=== PATIENT | female | born 1990 | race Caucasian/White ===

== ENCOUNTER 2018-08-29 21:17 | Outpatient (CLI) | END 2018-08-29 23:55 | disposition home or self-care (01) ==

== ENCOUNTER 2018-11-20 03:35 | Inpatient (IN) | payer MEDICAID ==
[~2018-11-20] VITALS: Ht 165.1 cm; Wt 64.1 kg
[2018-11-20 03:54] VITALS: Ht 165.1 cm; Wt 64.1 kg
[2018-11-20 03:55] VITALS: BP 125/79; PULSE 109; RESP 20
[2018-11-20] MEDS ORDERED: LACTATED RINGER'S 1,000 ML IV SCH (03:58)
[2018-11-20] MEDS ORDERED: PREN-93 PO (03:58)
[2018-11-20] MEDS ORDERED: LACTATED RINGER'S 1,000 ML IV PRN (03:58)
[2018-11-20] MEDS ORDERED: CALC600T24 PO (03:58)
[2018-11-20] MEDS ORDERED: OXYTOCIN 30 UNITS/LR 500 ML IV PRN ×2 (04:00→07:00)
[2018-11-20] MEDS ORDERED: MISOPROSTOL 200 MCG TAB PR PRN ×2 (04:00→07:00)
[2018-11-20] MEDS ORDERED: IBUPROFEN 600 MG TAB PO PRN (04:00)
[2018-11-20] MEDS ORDERED: METHYLERGONOVINE 0.2 MG INJ IM PRN ×2 (04:00→07:00)
[2018-11-20] MEDS ORDERED: BUTORPHANOL 2 MG INJ IV PRN (04:00)
[2018-11-20] MEDS ORDERED: CARBOPROST 250 MCG INJ IM PRN ×2 (04:00→07:00)
[2018-11-20] MEDS ORDERED: OXYTOCIN 30 UNITS/LR 500 ML IV SCH ×3 (04:00→05:00)
[2018-11-20] MEDS ORDERED: LIDOCAINE 1% (MPF) 30 ML INJ INJ PRN (04:00)
[2018-11-20] MEDS ORDERED: AMPICILLIN 2 GM/NS (PMX) 100 ML IV ONE (04:00)
--- NOTE | 2018-11-20 05:45 | PREAC ---
Date/Time of Note Date/Time of Note DATE: 11/20/18 TIME: 05:44 Anesthesia Eval and Record Evaluation Time Pre-Procedure Interview DATE: 11/20/18 TIME: 05:44 Age 28 Sex female NPO: 8 hrs Preoperative diagnosis IUP Planned procedure L&D Past Medical History Past Medical History: None Surgery & Anesthesia Issues No known issue Meds Anticoagulation: No Beta Arabella within 24 hr: No Reason Beta Arabella not given: Pt. not on B-Arabella Reported Medications Calcium Carbonate* (Calcium Carbonate*) 600 MG Ca Tab, 600 MG PO DAILY, TAB 11/20/18 Vit No.124/Iron/FA ( Vitamin Tablet) 1 Each Tablet, 1 EACH PO DAILY, TAB 11/20/18 Current Medications Lactated Ringer's 1,000 ml @ 125 mls/hr Q8H IV Last administered on 11/20/18at 04:25; Admin Dose 125 MLS/HR; Start 11/20/18 at 03:58 Ampicillin 50 ml @ 100 mls/hr Q4H IV ; Start 11/20/18 at 08:00 Butorphanol Tartrate (Stadol) 2 mg Q2H PRN IV PAIN; Start 11/20/18 at 04:00 Lidocaine (Xylocaine 1% (Mpf)) 30 ml ONCE PRN INJ EPISIOTOMY; Start 11/20/18 at 04:00 Oxytocin/Lactated Ringer's 500 ml @ 500 mls/hr ONCE POST IV ; Start 11/20/18 at 04:00 Oxytocin/Lactated Ringer's 500 ml @ 125 mls/hr POST IV ; Start 11/20/18 at 04:00 Ibuprofen (Motrin) 600 mg ONCE PRN PO PAIN LEVEL 1-5; Start 11/20/18 at 04:00 Lactated Ringer's 1,000 ml @ 2,000 mls/hr Q30M PRN IV ANESTHESIA; Start 11/20/18 at 03:58 Oxytocin/Lactated Ringer's 500 ml @ 0 mls/hr ONCE PRN IV VAGINAL BLEEDING; Start 11/20/18 at 04:00 Methylergonovine Maleate (Methergine) 0.2 mg ONCE PRN IM VAGINAL BLEEDING; Start 11/20/18 at 04:00 Carboprost Tromethamine (Hemabate) 250 mcg ONCE PRN IM VAGINAL BLEEDING; Start 11/20/18 at 04:00 Misoprostol (Cytotec) 1,000 mcg ONCE PRN AR VAGINAL BLEEDING; Start 11/20/18 at 04:00 Oxytocin/Lactated Ringer's 500 ml @ 0 mls/hr FOR AUGMENTATION IV ; Start 11/20/18 at 05:00 Meds reviewed: Yes Allergies Coded Allergies: No Known Allergy (Unverified , 11/20/18) Allergies Reviewed: Yes Labs/Studies Labs Reviewed: Reviewed by anesthesiologist Result Diagram: 11/20/18 0430 Laboratory Tests 11/20/18 04:30 test: Positive Studies: ECG Pre-procedure Exam Last vitals Vital Signs Date Temp Pulse Resp B/P (MAP) Pulse Ox O2 O2 Flow FiO2 Time Delivery Rate 11/20/18 97.5 109 20 125/79 Room Air 03:55 (94) Airway: Adequate mouth opening, Adequate thyromental dist Mallampati: Mallampati II Teeth: Normal Lung: Normal Heart: Normal ASA Physical Status ASA physical status: 2 Emergency: None Planned Anesthetic Neuraxial: Epidural Planned Pain Management Epidural, Parenteral pain med Pre-operative Attestations Prior to commencing anesthesia and surgery, the patient was re-evaluated, there was verification of: *The patient's identity *The results of appropriate recent lab work and preoperative vital signs *The above evaluation not changing prior to induction *Anesthetic plan, risk benefits, alternative and complications discussed with patient/family; questions answered; patient/family understands, accepts and wishes to proceed. CATRACHO CALDERON MD Nov 20, 2018 05:45
[2018-11-20] MEDS ORDERED: FENTAnyl 2MCG/ML-ROPIV 0.2% 0 ML ONE (05:47)
[2018-11-20] MEDS ORDERED: ONDANSETRON 4 MG INJ IV PRN ×2 (06:00→07:00)
[2018-11-20] MEDS ORDERED: DIPHENHYDRAMINE 50 MG INJ IV PRN ×2 (06:00→07:00)
[2018-11-20] MEDS ORDERED: NALOXONE (0.4 MG/ML) INJ IV PRN (06:00)
[2018-11-20] MEDS ORDERED: FENTAnyl 2MCG/ML-ROPIV 0.2% 100 ML BAG EPI SCH (06:00)
--- NOTE | 2018-11-20 06:49 | HP ---
Date/Time of Note Date/Time of Note DATE: 11/20/18 TIME: 06:46 OB - History Hx of Present Free Text/Dictation 28-year-old with single intrauterine at 38 weeks and 3 days with a ADELINE of 12/01/2018 complaining of leakage of fluid and uterine contractions. She states good movement. She denies nausea, vomiting, shortness of breath, chest pain, headache, visual changes, vaginal bleeding or LOF. Chief Complaint: Uterine contractions and leakage of fluid Estimated Due Date: Dec 01, 2018 : 2 Para: 1 Spontaneous : 0 Therapeutic : 0 Care: Good Care Ultrasounds: Normal mid trimester US Obstetrical Complications: None Medical Complications: None Past Family/Social History * Past Medical, Surgical, Family and Obstetric Histories reviewed from chart. Blood Type: A+ Rubella: immune RPR/VDRL: Negative GBS Status: Positive HBsAG: Negative OB Admission Exam Vital Signs Vital Signs Vital Signs Date Temp Pulse Resp B/P (MAP) Pulse Ox O2 O2 Flow FiO2 Time Delivery Rate 11/20/18 97.5 109 20 125/79 Room Air 03:55 (94) Physical Exam HEENT: WNL Heart: Rhythm Normal Lungs: Clear Abdomen: WNL Extremities: Normal Cervical Dilatation: 5cm Effacement: 75% Station: -2 Membranes: Ruptured Amniotic Fluid: Clear Heart Rate: 130's Accelerations: Accelerations Present Decelerations: No Decelerations Varibility: Moderate Contractions on Admission: < 5 Minutes Apart Intensity: Moderate Last 72 hours Lab Results CBC & BMP 11/20/18 04:30 OB Assessment/Plan Other plan: 28-year-old 001 at 38 weeks and 3 days with spontaneous rupture of membrane in active labor - FHR: No sign of metabolic acidosis- Category I - Continuous EFM, toco - CBC, blood type and screen - Analgesia options with R/B/A discussed in detail with patient - Epidural per patient request - Please see the orders - A+/Rubella: Immune - GBS: positive, ampicillin ordered Admission, procedures, expectations, risks and possible complications have been discussed in detail with the patient. Risk of vaginal delivery including but not limited to bleeding, infection, cervical laceration, placental retention, injury to fetus, blood transfusion, blood transfusion related infection, risk of anesthesia, adhesion, cervical laceration, episiotomy/laceration, possible delivery with risk of bleeding, infection, injury to other organs (bowel, bladder, ureter, vessels, nerves), injury to fetus, blood transfusion, blood transfusion related infection, risk of anesthesia, scar and hernia formation, needs for future , removal of uterus or any other indicated surgery discussed with the patient. She expressed understanding and repeats the risks. All of her questions were answered. She signed the informed consent. PHYSICIAN'S VERIFICATION OF INFORMED CONSENT The patient was counseled regarding the procedure, its indications, risks, potential complications and alternatives and any questions were answered. Consent was obtained. PLANNED PROCEDURE/TREATMENT: Vaginal delivery, episiotomy, repair of laceration possible delivery JAE FIERRO Nov 20, 2018 06:49
[2018-11-20] MEDS: DEXTROSE 5%-LR 1,000 ML IV SCH ×3 (06:51→22:51)
[2018-11-20] MEDS: LACTATED RINGER'S 1,000 ML IV* SCH ×3 (06:51→22:51)
--- NOTE | 2018-11-20 06:51 | LDN ---
Date/Time of Note Date/Time of Note DATE: 11/20/18 TIME: 06:49 Delivery Summary 28-year-old with single intrauterine at 38 weeks and 3 days delivered a viable female over intact perineum. Nose and mouth suctioned. Rest of body delivered. Cord clamped and cut. Baby given to the nurse. Placenta delivered intact and spontaneously with three-vessel cord. Patient tolerated procedure well. Time of delivery 05; 57 Weight 3455 g - 7 pound 10 ounces 8 at 1 minutes and 9 at 5 minutes EBL 150 mL Weeks of Gestation 38 weeks and 3 days Placenta Delivered: Spontaneously Meconium: none Episiotomy: No Estimated blood loss: 150 Sponge & Needle done & correct: Yes All needle counts correct: Yes Any foreign bodies felt in the: No Delivery Information Sex Infant Sex: female Apgars 1 Minute: 8 5 Minute: 9 10 Minute: 10 Suctioning Nose & mouth suctioned at aramis: Yes Umbilical Cord Umbilical cord with: 3 Vessels Cord presentations: no nuchal cord Cord Blood was obtained: Yes Mother & Baby Disposition Disposition Mom & Baby to Maternity; Good: Yes JAE FIERRO Nov 20, 2018 06:51
[2018-11-20] MEDS ORDERED: SENNA/DOCUSATE NA (8.6MG/50MG) TAB PO PRN (07:00)
[2018-11-20] MEDS ORDERED: ZOLPIDEM 5 MG TAB PO PRN (07:00)
[2018-11-20] MEDS ORDERED: MAGNESIUM HYDROXIDE 30ML CUP PO PRN (07:00)
[2018-11-20] MEDS ORDERED: OXYCODONE/ASPIRIN (4.88/325) TAB PO PRN (07:00)
[2018-11-20] MEDS ORDERED: ACETAMINOPHEN 325 MG TAB PO PRN (07:00)
[2018-11-20] MEDS ORDERED: WITCH HAZEL/GLYCERIN PAD PR PRN (07:00)
[2018-11-20] MEDS ORDERED: BENZOCAINE 20% 56 ML SPRAY TOP PRN (07:00)
[2018-11-20] MEDS ORDERED: DIBUCAINE 1% 30 GM OINT TOP PRN (07:00)
--- NOTE | 2018-11-20 07:04 | TRIAGE ---
OB Triage Datetime Report Generated by CPN: 11/20/2018 07:04 Datetime: 11/20/2018 06:58 Stage of : Recovery Pain Assessment Pain Scale: 1 Pain Presence: Intermittent Pain Type: Cramping Pain Location: Abdomen Pain Goal: 3 Pain Relief Measures: Comfort Measures Datetime: 11/20/2018 06:43 Stage of : Recovery Pain Assessment Pain Scale: 1 Pain Presence: Intermittent Pain Type: Cramping Pain Location: Abdomen Pain Goal: 3 Pain Relief Measures: Comfort Measures Datetime: 11/20/2018 06:28 Stage of : Recovery Pain Assessment Pain Scale: 1 Pain Presence: Intermittent Pain Type: Cramping Pain Location: Abdomen Pain Goal: 3 Pain Relief Measures: Comfort Measures Datetime: 11/20/2018 06:13 Stage of : Recovery Temperature Route: Oral Pain Assessment Pain Scale: 1 Pain Presence: Intermittent Pain Type: Cramping Pain Location: Abdomen Pain Goal: 3 Pain Relief Measures: Comfort Measures Datetime: 11/20/2018 05:54 Monitor Mode: External US Datetime: 11/20/2018 05:52 Vaginal Exam Dilatation (cms): 10.0 Effacement (%): 100 Datetime: 11/20/2018 05:00 Stage of : OB Triage Labor Evaluation Frequency: 1.5-2.5 Monitor Mode: External Duration (sec)2399: 40-90 Quality: Strong Pattern: Normal: <= 5 Contractions in 10 Minutes Resting Tone Jefferson: Relaxed Heart Rate FHR Baseline Rate: 155 Monitor Mode: External US Variability: Moderate 6-25 bpm Accelerations: 15X15 Decelerations: None Category: Category I Datetime: 11/20/2018 04:15 Stage of : Labor Datetime: 11/20/2018 04:09 Stage of : OB Triage Labor Evaluation Frequency: 1.5-2 Monitor Mode: External Duration (sec)2399: 50-70 Quality: Strong Pattern: Normal: <= 5 Contractions in 10 Minutes Resting Tone Jefferson: Relaxed Monitor Mode: External US Variability: Moderate 6-25 bpm Accelerations: 15X15 Decelerations: Variable Category: Category II Comments: Indeterminate baseline Datetime: 11/20/2018 04:00 Stage of : OB Triage Labor Evaluation Frequency: 1.5-2 Monitor Mode: External Duration (sec)2399: 40-90 Quality: Strong Pattern: Normal: <= 5 Contractions in 10 Minutes Resting Tone Jefferson: Relaxed Heart Rate FHR Baseline Rate: 150 Monitor Mode: External US Variability: Marked >25 bpm Accelerations: 15X15 Decelerations: None Category: Category II Datetime: 11/20/2018 03:34 Vaginal Exam Dilatation (cms): 4.0 Effacement (%): 70 Station: -2 Exam By: FRANCES Tolentino Membrane Status: Ruptured Membranes Ruptured Date/Time: 11/20/2018 03:00 Membranes Rupture Method: Spontaneous Amniotic Fluid Color: Clear Amniotic Fluid Amount: Large Amniotic Fluid Odor: Normal Vaginal Bleeding: None Datetime: 11/20/2018 03:32 Stage of : OB Triage Assessment Type: Triage Maternal Assessment Level of Consciousness: Fully Conscious DTR's/Clonus: DTRs 2+; No Clonus Headache: Denies Blurred Vision: No Respiratory Effort: Unlabored; Regular Rhythm; Equal Expansion Breath Sounds, Left: Clear and Equal Breath Sounds, Right: Clear and Equal Nausea/Vomiting: Denies RUQ Epigastric Pain: Denies Lower Extremities Edema: None Degree: None Upper Extremities Edema: None Degree: None Facial Edema: None Temperature Route: Oral Fall Risk Assessment History of Falling: (0) No Secondary Diagnosis: (0) No Ambulatory Aid: (0) Bedrest/Nurse Assist IV Therapy: (0) No Gait: (0) Normal/Bedrest/Immobile Mental Status: (0) Oriented to Own Ability Fall Score: 0 Fall Risk Score Definition: No Risk: No action required Pain Assessment Pain Scale: 6 Pain Presence: Intermittent Pain Type: Cramping; Contraction; Pressure Pain Location: Abdomen; Back Pain Relief Measures: Comfort Measures Datetime: 11/20/2018 03:30 Stage of : OB Triage Monitor Mode: External Contraction Comments: Jefferson applied Monitor Mode: External US Comments: EFM applied. FHTs audible 130-160BPM Datetime: 11/20/2018 03:25 Time of Arrival: 11/20/2018 03:21 EGA: 38.3 Arrived By: Wheelchair Arrived From: Home Chief Complaint: Pt reports gross ROM @0300 _ uc's since 1600 Movement: Present Contractions: Regular Time Contractions Began: 11/19/2018 16:00 Contractions: q2-4mins Rupture of Membranes: Ruptured Vaginal Bleeding: None Vaginal Discharge: Present Abdominal Trauma: Not Applicable Patient Complaints: Contractions; Cramping; Back Pain Time Provider Notified: 11/20/2018 03:50 Provider Notified: Initial Plan: NST, VE Datetime: 08/29/2018 21:46 Fall Score: 0 Fall Risk Score Definition: No Risk: No action required Datetime: 08/29/2018 21:44 EGA: 26.5 Presentation 'A': Cephalic
[2018-11-20] MEDS ORDERED: AMPICILLIN 1 GM/NS (PMX) 50 ML IV SCH (08:00)
[2018-11-20 08:30] VITALS: BP 112/62; PULSE 91; RESP 18
[2018-11-20 09:05] VITALS: BP 123/70; PULSE 106; RESP 18
[2018-11-20] MEDS: LANOLIN HPA 1 PKT TOP PRN (10:37)
[2018-11-20] MEDS: IBUPROFEN 600 MG TAB PO SCH ×3 (12:05→23:32)
[2018-11-20 16:18] VITALS: BP 108/66; PULSE 79; RESP 18
[2018-11-20 20:15] VITALS: BP 106/57; PULSE 86; RESP 17
[2018-11-21 04:00] VITALS: BP 111/57; PULSE 74; RESP 18
[2018-11-21] MEDS: IBUPROFEN 600 MG TAB PO SCH ×4 (05:59→23:56)
[2018-11-21] MEDS: DEXTROSE 5%-LR 1,000 ML IV SCH ×3 (06:00→22:51)
[2018-11-21] MEDS: LACTATED RINGER'S 1,000 ML IV* SCH ×3 (06:01→22:51)
[2018-11-21] MEDS: LANOLIN HPA 1 PKT TOP PRN (08:19)
[2018-11-21 08:30] VITALS: BP 96/54; PULSE 74; RESP 18
--- NOTE | 2018-11-21 12:49 | QN ---
Documentation Comment PPD#1 is stable afebrile tolerates Diet No VB +BM +voids Vs stable Gen NAD Abd soft NT ND Genitalia No blood at perineum --->Discharge plan tomorrow INDERJIT BROWNLEE M.D. Nov 21, 2018 12:49
[2018-11-21 16:00] VITALS: BP 103/57; PULSE 83; RESP 18
[2018-11-21 20:00] VITALS: BP 111/59; PULSE 87; RESP 18
[2018-11-22 03:54] VITALS: BP 117/68; PULSE 64; RESP 17
[2018-11-22] MEDS: IBUPROFEN 600 MG TAB PO SCH ×2 (06:12→11:31)
[2018-11-22] MEDS: DEXTROSE 5%-LR 1,000 ML IV SCH (06:51)
[2018-11-22] MEDS: LACTATED RINGER'S 1,000 ML IV* SCH (06:51)
[2018-11-22 08:30] VITALS: BP 107/57; PULSE 88; RESP 18
[2018-11-22] MEDS ORDERED: DIPHTH/TET/ACEL PERTUSS (ADULT) 0.5 ML VIAL IM* ONE (09:00)
[2018-11-22] MEDS ORDERED: MEASLES,MUMPS,RUBELLA VACCINE INJ SC* ONE (09:00)
[2018-11-22] MEDS: LANOLIN HPA 1 PKT TOP PRN (11:36)
--- NOTE | 2018-11-22 16:15 | QN ---
Documentation Comment PPD#2 is stable afebrile tolerates Diet No VB +BM +voids Vs stable Gen NAD Abd soft NT ND Genitalia No blood at perineum --->Discharge plan INDERJIT BROWNLEE M.D. Nov 22, 2018 16:15
--- NOTE | 2018-11-22 16:16 | DS ---
Date/Time of Note Date/Time of Note DATE: 11/22/18 TIME: 16:15 Discharge Summary Admission/Discharge Info Admit Date/Time Nov 20, 2018 at 03:50 Discharge Date/Time 11/22/2018 Discharge Diagnosis Patient Condition: Good Hospital Course uneventful Home Meds Reported Medications Calcium Carbonate* (Calcium Carbonate*) 600 MG Ca Tab, 600 MG PO DAILY, TAB 11/20/18 Vit No.124/Iron/FA ( Vitamin Tablet) 1 Each Tablet, 1 EACH PO DAILY, TAB 11/20/18 Primary Care Provider Care Physician INDERJIT Pires M.D. Nov 22, 2018 16:16
--- NOTE | 2018-11-23 07:43 | PAC ---
Date/Time of Note Date/Time of Note DATE: 11/23/18 TIME: 07:42 Post-Anesthesia Notes Post-Anesthesia Note Last documented vital signs Vital Signs Date Temp Pulse Resp B/P (MAP) Pulse Ox O2 O2 Flow FiO2 Time Delivery Rate 11/22/18 98.5 88 18 107/57 Room Air 08:30 (74) Activity: WNL Respiratory function: WNL Cardiovascular function: WNL Mental status: Baseline Pain reasonably controlled: Yes Hydration appropriate: Yes Nausea/Vomiting absent: Yes Comments BP:120/65, pulse:78, spo2:100%, T:98,8 CATRACHO CALDERON MD Nov 23, 2018 07:43
== END 2018-11-22 17:15 | disposition home or self-care (01) | DRG 807 ==
LOC: OBT 03:35 → L-D 03:36 → OBT 03:50 → L-D 03:50 → PP1 08:31
PROVIDERS: ADMIT Obstetrics & Gynecology; ATTEND Obstetrics & Gynecology
PROC: 10E0XZZ Delivery of Products of Conception, External Approach (ICD-10-PCS; principal; 2018-11-20)
PROC: 4A1HXCZ Monitoring of Products of Conception, Cardiac Rate, External Approach (ICD-10-PCS; 2018-11-20)
DX: O80 Encounter for full-term uncomplicated delivery (principal); Z37.0 Single live birth; Z3A.38 38 weeks gestation of pregnancy
CPT/HCPCS: 85025; 85610; 85730; 86592; 86850; 86900; 86901; 87340; G0463; J0290; J2590; J3010; J7120; J7121